=== PATIENT | male | born 1960 | race American Indian/Alaskan Native ===

== ENCOUNTER 2017-04-12 03:23 | Emergency (ER) | payer MEDICARE ==
[2017-04-12 03:33] VITALS: BP 135/87
--- NOTE | 2017-04-12 05:00 | XRay Report ---
FINAL REPORT EXAM: XR ANKLE 2V LT HISTORY: pain TECHNIQUE: AP and lateral views of the left ankle were submitted. FINDINGS: There is soft tissue fullness along the lateral aspect of the ankle. The ankle mortise appears intact. There is no acute fracture. There are small spurs along the posterior and plantar margin of the calcaneus. IMPRESSION: Soft tissue fullness around the lateral aspect of the ankle. No acute fracture Calcaneal spurs.
[2017-04-12] MEDS ORDERED: NORCO 5/325 ONE (05:16)
[2017-04-12] MEDS ORDERED: NORCO 5/325 PO ONE (05:17)
--- NOTE | 2017-04-12 07:20 | Emergency Department Report ---
ED Lower Extremity HPI - General Chief Complaint: Extremity Injury, Lower Stated Complaint: LEG PAIN Time Seen by Provider: 04/12/17 07:12 Source: patient Mode of arrival: Ambulatory Limitations: Physical Limitation - History of Present Illness Initial Comments: This is a 56-year-old male nontoxic, well nourished in appearance, no acute signs of distress presents to the ED with c/o of left ankle pain and swelling 2 days. Patient stated he was playing with his grandson in the bed and when he is got off the bed he believes he twisted his ankle. Patient denies any direct trauma. Patient denies any fever, chills, nausea, vomiting, chest pain, shortness of breath, numbness, tingling, headache or stiff neck. Patient denies decreased range of motion. Patient denies any drug allergies. Past medical history includes hypertension. MD Complaint: ankle injury -: days(s) (2) Injury: Ankle: Left Type of Injury: inversion Place: home Severity: mild Severity scale (0 -10): 8 Improves With: immobilization Worsens With: movement Associated Symptoms: swelling, able to partially bear weight. denies: snap/pop sensation, numbness, tingling, unable to bear weight, ambulatory - Related Data Home Medications Medication Instructions Recorded Confirmed Last Taken Lovastatin [Altoprev] 20 mg PO QPM 12/15/12 12/15/12 12/14/12 23:00 amLODIPine [Norvasc] 5 mg PO DAILY 12/15/12 12/15/12 12/15/12 09:00 Previous Rx's Medication Instructions Recorded Last Taken Type Hydrocodone Bit/Acetaminophen 1 - 2 each PO Q4H PRN #20 tablet 12/16/12 Unknown Rx [Lortab 5-500 Tablet] Indomethacin 50 mg PO Q8H #60 capsule 12/16/12 Unknown Rx predniSONE [Deltasone] 50 mg PO QDAY #7 tab 12/16/12 Unknown Rx Gentamicin 0.3% Ophth Soln 1 drops OP Q4H #1 bottle 01/19/14 Unknown Rx Acetaminophen [Acetaminophen TAB] 1,000 mg PO Q6HR #20 tablet 09/22/14 Unknown Rx Acetaminophen/Codeine [Tylenol #3] 1 tab PO Q6H PRN #21 tab 02/01/15 Unknown Rx Clindamycin [Clindamycin CAP] 600 mg PO BID #28 capsule 02/01/15 Unknown Rx methOCARBAMOL [Robaxin TAB] 500 mg PO Q6H PRN #12 tablet 05/31/15 Unknown Rx traMADol [Ultram 50 MG tab] 50 mg PO Q6HR PRN #12 tablet 11/10/15 Unknown Rx Ibuprofen [Motrin] 600 mg PO Q8H PRN #30 tablet 04/12/17 Unknown Rx predniSONE [Deltasone] 40 mg PO QDAY #5 tab 04/12/17 Unknown Rx Allergies Allergy/AdvReac Type Severity Reaction Status Date / Time No Known Allergies Allergy Verified 02/01/15 15:08 ED Review of Systems ROS: Stated complaint: LEG PAIN Other details as noted in HPI Constitutional: denies: chills, fever Eyes: denies: eye pain, eye discharge, vision change ENT: denies: ear pain, throat pain Respiratory: denies: cough, shortness of breath, wheezing Cardiovascular: denies: chest pain, palpitations Endocrine: no symptoms reported Gastrointestinal: denies: abdominal pain, nausea, diarrhea Genitourinary: denies: urgency, dysuria Musculoskeletal: arthralgia. denies: back pain, joint swelling Skin: denies: rash, lesions Neurological: denies: headache, weakness, paresthesias Psychiatric: denies: anxiety, depression Hematological/Lymphatic: denies: easy bleeding, easy bruising ED Past Medical Hx - Past Medical History Previous Medical History?: Yes Hx Hypertension: Yes (Pt states no but on HTN meds) Hx Heart Attack/AMI: No Hx Congestive Heart Failure: No Hx Diabetes: No Hx Arthritis: Yes Hx COPD: No Additional medical history: gout - Surgical History Past Surgical History?: Yes Additional Surgical History: gastric bypass 01 - Social History Smoking Status: Never Smoker Substance Use Type: None - Medications Home Medications: Home Medications Medication Instructions Recorded Confirmed Last Taken Type Lovastatin [Altoprev] 20 mg PO QPM 12/15/12 12/15/12 12/14/12 23:00 History amLODIPine [Norvasc] 5 mg PO DAILY 12/15/12 12/15/12 12/15/12 09:00 History Hydrocodone Bit/Acetaminophen 1 - 2 each PO Q4H PRN #20 tablet 12/16/12 Unknown Rx [Lortab 5-500 Tablet] Indomethacin 50 mg PO Q8H #60 capsule 12/16/12 Unknown Rx predniSONE [Deltasone] 50 mg PO QDAY #7 tab 12/16/12 Unknown Rx Gentamicin 0.3% Ophth Soln 1 drops OP Q4H #1 bottle 01/19/14 Unknown Rx Acetaminophen [Acetaminophen TAB] 1,000 mg PO Q6HR #20 tablet 09/22/14 Unknown Rx Acetaminophen/Codeine [Tylenol #3] 1 tab PO Q6H PRN #21 tab 02/01/15 Unknown Rx Clindamycin [Clindamycin CAP] 600 mg PO BID #28 capsule 02/01/15 Unknown Rx methOCARBAMOL [Robaxin TAB] 500 mg PO Q6H PRN #12 tablet 05/31/15 Unknown Rx traMADol [Ultram 50 MG tab] 50 mg PO Q6HR PRN #12 tablet 11/10/15 Unknown Rx Ibuprofen [Motrin] 600 mg PO Q8H PRN #30 tablet 04/12/17 Unknown Rx predniSONE [Deltasone] 40 mg PO QDAY #5 tab 04/12/17 Unknown Rx ED Physical Exam - General Limitations: Physical Limitation General appearance: alert, in no apparent distress - Head Head exam: Present: atraumatic, normocephalic - Eye Eye exam: Present: normal appearance, PERRL, EOMI Pupils: Present: normal accommodation - ENT ENT exam: Present: mucous membranes moist - Neck Neck exam: Present: normal inspection - Respiratory Respiratory exam: Present: normal lung sounds bilaterally. Absent: respiratory distress, wheezes, rales, rhonchi, stridor, chest wall tenderness, accessory muscle use, decreased breath sounds, prolonged expiratory - Cardiovascular Cardiovascular Exam: Present: regular rate, normal rhythm, normal heart sounds. Absent: irregular rhythm, systolic murmur, diastolic murmur, rubs, gallop - GI/Abdominal GI/Abdominal exam: Present: soft, normal bowel sounds. Absent: distended, tenderness, guarding, rebound, rigid, diminished bowel sounds - Rectal Rectal exam: Present: deferred - Extremities Exam Extremities exam: Present: normal inspection, full ROM, tenderness, normal capillary refill. Absent: pedal edema, joint swelling, calf tenderness - Expanded Lower Extremity Exam Left Hip exam: Present: normal inspection, full ROM Upper Leg exam: Present: normal inspection, full ROM Knee exam: Present: normal inspection, full ROM Lower Leg exam: Present: normal inspection, full ROM. Absent: Lorenzo's sign Ankle exam: Present: normal inspection, full ROM, tenderness, swelling. Absent : abrasion, laceration, ecchymosis, deformity, crepidus, dislocation, erythema, anterior draw sign Foot/Toe exam: Present: normal inspection, full ROM. Absent: tenderness, swelling, abrasion, laceration, ecchymosis, deformity, crepidus, dislocation, erythema, amputation, puncture wound, foreign body, calcaneal tenderness, tenderness at base of 5th metatarsal, nail avulsion, subungual hematoma Neuro vascular tendon exam: Present: no vascular compromise. Absent: pulse deficit, abnormal cap refill, motor deficit, sensory deficit, tendon deficit, extremity cold to touch, pallor, abnormal 2-point discrimination, decreased fine /light touch, foot drop, peroneal nerve deficit, significant pain with passive ROM of distal joint Gait: Positive: observed and limited by pain - Back Exam Back exam: Present: normal inspection, full ROM. Absent: tenderness, CVA tenderness (R), CVA tenderness (L), muscle spasm, paraspinal tenderness, vertebral tenderness, rash noted - Neurological Exam Neurological exam: Present: alert, oriented X3, CN II-XII intact, normal gait, reflexes normal - Psychiatric Psychiatric exam: Present: normal affect, normal mood - Skin Skin exam: Present: warm, dry, intact, normal color. Absent: rash ED Course Vital Signs 04/12/17 04/12/17 03:28 04:14 Temperature 99.4 F 99.4 F Pulse Rate 122 H 122 H Respiratory 20 20 Rate Blood Pressure 135/87 135/87 O2 Sat by Pulse 98 97 Oximetry - Reevaluation(s) Reevaluation #1: 04/12/17 07:24 Patient is speaking in full sentences with no signs of distress noted. ED Lower Extremity MDM - Medical Decision Making This is a 56-year-old male that presents with left ankle sprain. Patient is stable and was examined by me. X-ray has been obtained and dictated by radiologist as no acute fractures or dislocation with mild swelling. There is no joint redness or warmth to touch. No signs of cellulitis. Patient received [place] prior to my interview and patient was instructed not to operate any machinery after discharge due to drowsiness. Patient received ice to the extremity. Patient was instructed to rice therapy. Patient received ankle stirrup and walker. Patient received Solu-Medrol in the ED and is discharged with prednisone and Motrin. Patient was instructed to Follow-up with a primary care doctor in 3-5 days or if symptoms worsen and continue return to emergency room as soon as possible. At time of discharge, the patient does not seem toxic or ill in appearance. No acute signs of distress noted. Patient agrees to discharge treatment plan of care. No further questions noted by the patient. Critical care attestation.: If time is entered above; I have spent that time in minutes in the direct care of this critically ill patient, excluding procedure time. ED Disposition Clinical Impression: Left ankle sprain Qualifiers: Encounter type: initial encounter Involved ligament of ankle: unspecified ligament Qualified Code(s): S93.402A - Sprain of unspecified ligament of left ankle, initial encounter Disposition: TO HOME OR SELFCARE Is pt being admited?: No Does the pt Need Aspirin: No Condition: Stable Instructions: Ankle Sprain (ED), Ankle Stirrup Splint (ED), RICE Therapy (ED), Ibuprofen (By mouth), Prednisone (By mouth) Additional Instructions: Follow-up with a orthopedic doctor in 3-5 days or if symptoms worsen and continue return to emergency room as soon as possible. Rest, elevate, ice extremity. Prescriptions: Ibuprofen [Motrin] 600 mg PO Q8H PRN #30 tablet PRN Reason: Pain predniSONE [Deltasone] 40 mg PO QDAY #5 tab Referrals: ZION SHULTZ MD [Primary Care Provider] - 3-5 Days CIERA CALLEJAS MD [Staff Physician] - 3-5 Days [facility] [Outside] - 3-5 Days
== END 2017-04-12 08:05 | disposition home or self-care (01) ==
LOC: ED 03:23
DX: S93.402A Sprain of unspecified ligament of left ankle, initial encounter (principal); I10 Essential (primary) hypertension; M10.9 Gout, unspecified; Z98.84 Bariatric surgery status; W51.XXXA Accidental striking against or bumped into by another person, initial encounter; Y93.89 Activity, other specified; Y92.092 Bedroom in other non-institutional residence as the place of occurrence of the external cause; Y99.8 Other external cause status
CPT/HCPCS: 29515; 73600; 96372; 99283; J2930

== ENCOUNTER 2017-08-03 09:50 | Day surgery (SDC) | payer MEDICARE ==
[~2017-08-03 09:50] MED LIST: NACL 0.9% 1000 ML 1,000 ML IV SCH
[2017-08-03] MEDS ORDERED: WATER FOR IRRIG STERILE IR ONE (11:56)
[2017-08-03] MEDS ORDERED: VERSED ONE (12:02)
[2017-08-03] MEDS ORDERED: DIPRIVAN 10 MG/ML IV ONE (12:02)
--- NOTE | 2017-08-03 12:26 | Post Operative Note ---
Pre-op diagnosis: screening colonoscopy Post-op diagnosis: other (procedure aborted due to poor prep (incomplete colonoscopy)) Findings: Poor prep (large amount of solid stool). Procedure aborted in descending colon. Procedure: Incomplete colonoscopy due to poor prep Anesthesia: MAC Surgeon: BRY MANZANARES Estimated blood loss: none Pathology: none Condition: stable Disposition: same day
--- NOTE | 2017-08-03 12:28 | Operative Report ---
Operative Report Operative Report: Colonoscopy Procedure Note Date of procedure: 08/03/2017 Endoscopist: Flip Vences Pre-op diagnosis: screening colonoscopy Post-op diagnosis: Incomplete colonoscopy (intentionally aborted due to poor prep) Anesthesia: MAC Complications: No immediate complications Estimated blood loss: minimal Procedure: After consent was obtained, the patient was placed in the left lateral decubitus position. The fujinon colonoscope was inserted into the patient's rectum under direct vision, and advanced descending colon. The quality of prep was poor. The views of the mucosa were poor. The procedure was intentionally aborted. Findings: Incomplete colonoscopy (procedure aborted) due to poor prep. Impression: 1. Poor prep as above Recommendations: -repeat colonoscopy in 6 months with two day prep
[2017-08-03 13:18] VITALS: BP 121/88
--- NOTE | 2017-08-03 13:19 | Anesthesia Consultation ---
Anesthesia Consult and Med Hx - Airway Anesthetic Teeth Evaluation: Good ROM Head & Neck: Adequate Mental/Hyoid Distance: Adequate Mallampati Class: Class IV Intubation Access Assessment: Possibly Difficult - Pulmonary Exam CTA: Yes - Cardiac Exam Cardiac Exam: No Murmur - Pre-Operative Health Status ASA Pre-Surgery Classification: ASA3 Proposed Anesthetic Plan: MAC - Pulmonary COPD: No Hx Sleep Apnea: No - Cardiovascular System Hx Hypertension: Yes Hx Coronary Artery Disease: No Hx Heart Attack/AMI: No - Hematic Hx Anemia: Yes (Childhood dx) - Other Systems Hx Obesity: Yes
--- NOTE | 2017-08-03 13:19 | Anesthesia Day of Surgery ---
Anesthesia Day of Surgery - Day of Surgery Patient Examined: Yes Patient H&P Reviewed: Yes Patient is NPO: Yes Beta Blockers: No Cardiac Clearance: No Pulmonary Clearance: No
== END 2017-08-03 09:51 | disposition home or self-care (01) ==
LOC: GIO 09:50
PROVIDERS: ATTEND Internal Medicine Gastroenterology
DX: Z12.11 Encounter for screening for malignant neoplasm of colon (principal); I10 Essential (primary) hypertension; E66.01 Morbid (severe) obesity due to excess calories; Z68.43 Body mass index [BMI] 50.0-59.9, adult; Z91.048 Other nonmedicinal substance allergy status; Z91.09 Other allergy status, other than to drugs and biological substances; Z98.890 Other specified postprocedural states; Z79.899 Other long term (current) drug therapy
CPT/HCPCS: G0121; J2250; J2704; J7030

== ENCOUNTER 2018-10-01 17:07 | Emergency (ER) | payer MEDICARE ==
[2018-10-01 17:13] VITALS: BP 147/91
--- NOTE | 2018-10-01 17:19 | Emergency Department Report ---
Blank Doc - Documentation Documentation: This is a 58-year-old male that presents with right flank pain. This initial assessment/diagnostic orders/clinical plan/treatment(s) is/are subject to change based on patient's health status, clinical progression and re- assessment by fellow clinical providers in the ED. Further treatment and workup at subsequent clinical providers discretion. Patient/guardians urged not to elope from the ED as their condition may be serious if not clinically assessed and managed. Initial orders include: 1- Patient sent to [facility] for further evaluation and treatment 2- UA
[2018-10-01] MEDS ORDERED: DECADRON IM ONE (19:38)
[2018-10-01] MEDS ORDERED: TORADOL IM ONE (19:38)
[2018-10-01 20:18] LABS: Bacteria,Urine 1+ /HPF (Negative); Bilirubin,Urine NEG (Negative); Blood,Urine SM (Negative); Color,Urine Yellow (Yellow); Mucus,Urine FEW /HPF
[2018-10-01] MEDS ORDERED: LEVAQUIN PO ONE (20:48)
--- NOTE | 2018-10-01 21:38 | Emergency Department Report ---
ED General Adult HPI - General Chief complaint: Pain General Stated complaint: KIDNEY PAIN Time Seen by Provider: 10/01/18 17:17 Source: patient Mode of arrival: Ambulatory Limitations: No Limitations - History of Present Illness Initial comments: Patient is a 58-year-old -[place] male with a history of hypertension who presents to ED with complaint of acute onset persistent nontraumatic low back pain for the last 2 days. Patient also complains of urinary frequency and urgency and suspects that he may be having a urinary tract infection. Patient states that the pain radiates to the right flank intermittently. The patient denies fever, chills, dysuria, hematuria, penile discharge, testicular pain, traumatic pain, heavy lifting, fall, numbness and tingling or weakness of lower extremities bilaterally, urinary or bowel incontinence, saddle paresthesia, nausea or vomiting and diarrhea. Patient states that the pain is worse with any ambulation or palpation of his lower back. MD Complaint: low back pain; muscle spasm of back -: Sudden, days(s) (4) Location: back Radiation: flank (right) Severity scale (0 -10): 7 Quality: aching, sharp Consistency: constant Improves with: none Worsens with: movement Associated Symptoms: denies: confusion, chest pain, cough, diaphoresis, fever/chills, headaches, loss of appetite, malaise, nausea/vomiting, rash, shortness of breath, syncope, weakness, other - Related Data Home Medications Medication Instructions Recorded Confirmed Last Taken Lovastatin [Altoprev] 20 mg PO QPM 12/15/12 12/15/12 12/14/12 23:00 amLODIPine [Norvasc] 5 mg PO DAILY 12/15/12 12/15/12 12/15/12 09:00 Previous Rx's Medication Instructions Recorded Last Taken Type Hydrocodone Bit/Acetaminophen 1 - 2 each PO Q4H PRN #20 tablet 12/16/12 Unknown Rx [Lortab 5-500 Tablet] Indomethacin 50 mg PO Q8H #60 capsule 12/16/12 Unknown Rx predniSONE [Deltasone] 50 mg PO QDAY #7 tab 12/16/12 Unknown Rx Gentamicin 0.3% Ophth Soln 1 drops OP Q4H #1 bottle 01/19/14 Unknown Rx Acetaminophen [Acetaminophen TAB] 1,000 mg PO Q6HR #20 tablet 09/22/14 Unknown Rx Acetaminophen/Codeine [Tylenol #3] 1 tab PO Q6H PRN #21 tab 02/01/15 Unknown Rx Clindamycin [Clindamycin CAP] 600 mg PO BID #28 capsule 02/01/15 Unknown Rx traMADol [Ultram 50 MG tab] 50 mg PO Q6HR PRN #12 tablet 11/10/15 Unknown Rx Ibuprofen [Motrin] 600 mg PO Q8H PRN #30 tablet 04/12/17 Unknown Rx predniSONE [Deltasone] 40 mg PO QDAY #5 tab 04/12/17 Unknown Rx traMADol [Ultram] 50 mg PO Q6HR PRN #12 tablet 04/12/17 Unknown Rx Naproxen [Naprosyn] 500 mg PO Q12H PRN #20 tablet 10/01/18 Unknown Rx Sulfamethoxazole/Trimethoprim 1 each PO Q12H #20 tablet 10/01/18 Unknown Rx [Bactrim DS TAB] methOCARBAMOL [Robaxin TAB] 500 mg PO Q6H PRN #20 tablet 10/01/18 Unknown Rx predniSONE [Deltasone] 60 mg PO DAILY #15 tablet 10/01/18 Unknown Rx Allergies Allergy/AdvReac Type Severity Reaction Status Date / Time codeine AdvReac Itching Verified 10/01/18 17:14 ED Review of Systems ROS: Stated complaint: KIDNEY PAIN Other details as noted in HPI Constitutional: denies: chills, fever Eyes: denies: eye pain, eye discharge, vision change ENT: denies: ear pain, throat pain Respiratory: denies: cough, shortness of breath, wheezing Cardiovascular: denies: chest pain, palpitations Endocrine: no symptoms reported Gastrointestinal: denies: abdominal pain, nausea, diarrhea Genitourinary: urgency, frequency. denies: dysuria, hematuria, discharge, testicular pain, testicular mass Musculoskeletal: back pain, arthralgia, myalgia. denies: joint swelling Skin: denies: rash, lesions Neurological: denies: headache, weakness, paresthesias Psychiatric: denies: anxiety, depression Hematological/Lymphatic: denies: easy bleeding, easy bruising ED Past Medical Hx - Past Medical History Hx Hypertension: Yes Hx Heart Attack/AMI: No Hx Congestive Heart Failure: No Hx Diabetes: No Hx Arthritis: Yes Hx COPD: No Additional medical history: gout - Surgical History Additional Surgical History: gastric bypass 01 - Social History Smoking Status: Former Smoker Substance Use Type: None - Medications Home Medications: Home Medications Medication Instructions Recorded Confirmed Last Taken Type Lovastatin [Altoprev] 20 mg PO QPM 12/15/12 12/15/12 12/14/12 23:00 History amLODIPine [Norvasc] 5 mg PO DAILY 12/15/12 12/15/12 12/15/12 09:00 History Hydrocodone Bit/Acetaminophen 1 - 2 each PO Q4H PRN #20 tablet 12/16/12 Unknown Rx [Lortab 5-500 Tablet] Indomethacin 50 mg PO Q8H #60 capsule 12/16/12 Unknown Rx predniSONE [Deltasone] 50 mg PO QDAY #7 tab 12/16/12 Unknown Rx Gentamicin 0.3% Ophth Soln 1 drops OP Q4H #1 bottle 01/19/14 Unknown Rx Acetaminophen [Acetaminophen TAB] 1,000 mg PO Q6HR #20 tablet 09/22/14 Unknown Rx Acetaminophen/Codeine [Tylenol #3] 1 tab PO Q6H PRN #21 tab 02/01/15 Unknown Rx Clindamycin [Clindamycin CAP] 600 mg PO BID #28 capsule 02/01/15 Unknown Rx traMADol [Ultram 50 MG tab] 50 mg PO Q6HR PRN #12 tablet 11/10/15 Unknown Rx Ibuprofen [Motrin] 600 mg PO Q8H PRN #30 tablet 04/12/17 Unknown Rx predniSONE [Deltasone] 40 mg PO QDAY #5 tab 04/12/17 Unknown Rx traMADol [Ultram] 50 mg PO Q6HR PRN #12 tablet 04/12/17 Unknown Rx Naproxen [Naprosyn] 500 mg PO Q12H PRN #20 tablet 10/01/18 Unknown Rx Sulfamethoxazole/Trimethoprim 1 each PO Q12H #20 tablet 10/01/18 Unknown Rx [Bactrim DS TAB] methOCARBAMOL [Robaxin TAB] 500 mg PO Q6H PRN #20 tablet 10/01/18 Unknown Rx predniSONE [Deltasone] 60 mg PO DAILY #15 tablet 10/01/18 Unknown Rx ED Physical Exam - General Limitations: No Limitations General appearance: alert, in no apparent distress - Head Head exam: Present: atraumatic, normocephalic, normal inspection - Eye Eye exam: Present: normal appearance, PERRL, EOMI Pupils: Present: normal accommodation - ENT ENT exam: Present: normal exam, normal orophraynx, mucous membranes moist, TM's normal bilaterally, normal external ear exam - Neck Neck exam: Present: normal inspection, full ROM. Absent: tenderness, meningismus, lymphadenopathy, thyromegaly - Respiratory Respiratory exam: Present: normal lung sounds bilaterally. Absent: respiratory distress, wheezes, rales, rhonchi, chest wall tenderness, accessory muscle use, decreased breath sounds - Cardiovascular Cardiovascular Exam: Present: regular rate, normal rhythm, normal heart sounds. Absent: systolic murmur, diastolic murmur, rubs, gallop - GI/Abdominal GI/Abdominal exam: Present: soft, normal bowel sounds. Absent: tenderness, guarding, rebound, hyperactive bowel sounds, hypoactive bowel sounds - Rectal Rectal exam: Present: deferred - Extremities Exam Extremities exam: Present: normal inspection, full ROM, normal capillary refill - Back Exam Back exam: Present: normal inspection, full ROM (palpable lumbosacral paraspinal and musculoskeletal tenderness), tenderness, muscle spasm, paraspinal tenderness - Neurological Exam Neurological exam: Present: alert, oriented X3, CN II-XII intact, normal gait, reflexes normal - Psychiatric Psychiatric exam: Present: normal affect, normal mood - Skin Skin exam: Present: warm, dry, intact, normal color. Absent: rash ED Course Vital Signs 10/01/18 17:11 Temperature 98.8 F Pulse Rate 109 H Respiratory 20 Rate Blood Pressure 147/91 O2 Sat by Pulse 96 Oximetry - Reevaluation(s) Reevaluation #1: 10/01/18 21:45 This is a 58-year-old male who presented to the ED with low back pain and urinary frequency. In the ED, patient is alert and oriented 3 and is not in distress. Patient was treated for pain in the ED and urinalysis shows acute urinary tract infection. Patient was also treated in the ED initially with Levaquin 500 mg by mouth tablet 1. Patient was discharged home on antibiotics and pain medications and advised to follow-up with his primary care physician 7- 10 days for reevaluation. Patient was advised to return to the ED immediately if symptoms get worse. ED Medical Decision Making - Medical Decision Making This is a 58-year-old male who presented to the ED with low back pain and urinary frequency. In the ED, patient is alert and oriented 3 and is not in distress. Patient was treated for pain in the ED and urinalysis shows acute urinary tract infection. Patient was also treated in the ED initially with Levaquin 500 mg by mouth tablet 1. Patient was discharged home on antibiotics and pain medications and advised to follow-up with his primary care physician 7- 10 days for reevaluation. Patient was advised to return to the ED immediately if symptoms get worse. - Differential Diagnosis acute UTI; Chronic low back pain; Muscle spasm of back Critical care attestation.: If time is entered above; I have spent that time in minutes in the direct care of this critically ill patient, excluding procedure time. ED Disposition Clinical Impression: Acute urinary tract infection, Spasm of muscle of lower back Chronic low back pain without sciatica Qualifiers: Back pain laterality: right Qualified Code(s): M54.5 - Low back pain; G89.29 - Other chronic pain Disposition: TO HOME OR SELFCARE Is pt being admited?: No Does the pt Need Aspirin: No Condition: Stable Instructions: Urinary Tract Infection in Men (ED), Muscle Spasm (ED), Chronic Back Pain (ED) Additional Instructions: Take medications with food, drink plenty of fluids and follow up with your primary care physician in 7-10 days for reevaluation. Return to the ED immediately if symptoms get worse. Prescriptions: Sulfamethoxazole/Trimethoprim [Bactrim DS TAB] 1 each PO Q12H #20 tablet predniSONE [Deltasone] 60 mg PO DAILY #15 tablet Naproxen [Naprosyn] 500 mg PO Q12H PRN #20 tablet PRN Reason: Pain , Severe (7-10) methOCARBAMOL [Robaxin TAB] 500 mg PO Q6H PRN #20 tablet PRN Reason: Spasms Referrals: CHRISTINA HARRISON MD [Primary Care Provider] - 3-5 Days Time of Disposition: 21:40 Print Language: MONGOLIAN
[2018-10-01] MEDS ORDERED: TORADOL ONE (22:07)
[2018-10-01] MEDS ORDERED: DECADRON ONE (22:07)
== END 2018-10-01 22:13 | disposition home or self-care (01) ==
LOC: ED 17:07
DX: N39.0 Urinary tract infection, site not specified (principal); G89.29 Other chronic pain; M54.5 Low back pain; I10 Essential (primary) hypertension; M19.90 Unspecified osteoarthritis, unspecified site; Z87.891 Personal history of nicotine dependence; Z79.899 Other long term (current) drug therapy; Z88.6 Allergy status to analgesic agent
CPT/HCPCS: 81001; 96372; 99283; J1100; J1885

== ENCOUNTER 2019-01-22 15:19 | Emergency (ER) | payer MEDICARE ==
--- NOTE | 2019-01-22 16:08 | Emergency Department Report ---
Blank Doc - Documentation Documentation: 58-year-old male that presents with right great toe swelling with hx of gout. This initial assessment/diagnostic orders/clinical plan/treatment(s) is/are subject to change based on patient's health status, clinical progression and re- assessment by fellow clinical providers in the ED. Further treatment and workup at subsequent clinical providers discretion. Patient/guardians urged not to elope from the ED as their condition may be serious if not clinically assessed and managed. Initial orders include: 1- Patient sent to [facility] for further evaluation and treatment
[2019-01-22 19:28] VITALS: BP 160/102
[2019-01-22] MEDS ORDERED: IBUPROFEN 800 MG TAB PO ONE ×2 (20:55→20:59)
[2019-01-22] MEDS ORDERED: predniSONE 20 MG TAB PO ONE ×2 (20:55→20:59)
--- NOTE | 2019-01-22 21:55 | Emergency Department Report ---
ED Lower Extremity HPI - General Chief Complaint: Extremity Problem,Nontraumatic Stated Complaint: RT FOOT GOUT PAIN/EXTREME Time Seen by Provider: 01/22/19 16:07 Source: patient Mode of arrival: Wheelchair Limitations: No Limitations - History of Present Illness Initial Comments: 58-year-old male that presents with right great toe swelling with hx of gout. pain si 4/10 aching. this is an acute flare or chronic condition. pt has been taking ibuprofen but out ot mediaction a this time. pain is exacerbated by walking and prolonged standing, pain i MD Complaint: other (gout left righet co) Onset/Timin -: days(s), unknown (acute on chronic ) Injury: Toes: Right Type of Injury: unknown Place: home Severity: moderate Severity scale (0 -10): 8 Improves With: nothing Worsens With: weight bearing, movement, palpation Associated Symptoms: swelling, ambulatory Treatments Prior to Arrival: cold therapy - Related Data Home Medications Medication Instructions Recorded Confirmed Last Taken Lovastatin [Altoprev] 20 mg PO QPM 12/15/12 12/15/12 12/14/12 23:00 amLODIPine [Norvasc] 5 mg PO DAILY 12/15/12 12/15/12 12/15/12 09:00 Previous Rx's Medication Instructions Recorded Last Taken Type Hydrocodone Bit/Acetaminophen 1 - 2 each PO Q4H PRN #20 tablet 12/16/12 Unknown Rx [Lortab 5-500 Tablet] Indomethacin 50 mg PO Q8H #60 capsule 12/16/12 Unknown Rx predniSONE [Deltasone] 50 mg PO QDAY #7 tab 12/16/12 Unknown Rx Gentamicin 0.3% Ophth Soln 1 drops OP Q4H #1 bottle 01/19/14 Unknown Rx Acetaminophen [Acetaminophen TAB] 1,000 mg PO Q6HR #20 tablet 09/22/14 Unknown Rx Acetaminophen/Codeine [Tylenol #3] 1 tab PO Q6H PRN #21 tab 02/01/15 Unknown Rx Clindamycin [Clindamycin CAP] 600 mg PO BID #28 capsule 02/01/15 Unknown Rx traMADoL [Ultram 50 MG tab] 50 mg PO Q6HR PRN #12 tablet 11/10/15 Unknown Rx Ibuprofen [Motrin] 600 mg PO Q8H PRN #30 tablet 02/20/18 Unknown Rx predniSONE [Deltasone] 40 mg PO QDAY #5 tab 04/12/17 Unknown Rx traMADoL [Ultram] 50 mg PO Q6HR PRN #12 tablet 04/12/17 Unknown Rx Naproxen [Naprosyn] 500 mg PO Q12H PRN #20 tablet 10/01/18 Unknown Rx Sulfamethoxazole/Trimethoprim 1 each PO Q12H #20 tablet 10/01/18 Unknown Rx [Bactrim DS TAB] methOCARBAMOL [Robaxin TAB] 500 mg PO Q6H PRN #20 tablet 10/01/18 Unknown Rx predniSONE [Deltasone] 60 mg PO DAILY #15 tablet 10/01/18 Unknown Rx Indomethacin [Indocin] 50 mg RC TID PRN #30 supp.rect 01/22/19 Unknown Rx Allergies Allergy/AdvReac Type Severity Reaction Status Date / Time codeine AdvReac Itching Verified 10/01/18 17:14 ED Review of Systems ROS: Stated complaint: RT FOOT GOUT PAIN/EXTREME Other details as noted in HPI Constitutional: denies: chills, fever Eyes: denies: eye pain, eye discharge, vision change ENT: denies: ear pain, throat pain Respiratory: denies: cough, shortness of breath, wheezing Cardiovascular: denies: chest pain, palpitations Endocrine: no symptoms reported Gastrointestinal: denies: abdominal pain, nausea, diarrhea Genitourinary: denies: urgency, dysuria Musculoskeletal: arthralgia. denies: back pain, joint swelling Skin: denies: rash, lesions Neurological: denies: headache, weakness, paresthesias Psychiatric: denies: anxiety, depression Hematological/Lymphatic: as per HPI ED Past Medical Hx - Past Medical History Previous Medical History?: Yes Hx Hypertension: Yes Hx Heart Attack/AMI: No Hx Congestive Heart Failure: No Hx Diabetes: No Hx Arthritis: Yes Hx COPD: No Additional medical history: gout - Surgical History Past Surgical History?: Yes Additional Surgical History: gastric bypass 01 - Social History Smoking Status: Current Every Day Smoker Substance Use Type: Alcohol - Medications Home Medications: Home Medications Medication Instructions Recorded Confirmed Last Taken Type Lovastatin [Altoprev] 20 mg PO QPM 12/15/12 12/15/12 12/14/12 23:00 History amLODIPine [Norvasc] 5 mg PO DAILY 12/15/12 12/15/12 12/15/12 09:00 History Hydrocodone Bit/Acetaminophen 1 - 2 each PO Q4H PRN #20 tablet 12/16/12 Unknown Rx [Lortab 5-500 Tablet] Indomethacin 50 mg PO Q8H #60 capsule 12/16/12 Unknown Rx predniSONE [Deltasone] 50 mg PO QDAY #7 tab 12/16/12 Unknown Rx Gentamicin 0.3% Ophth Soln 1 drops OP Q4H #1 bottle 01/19/14 Unknown Rx Acetaminophen [Acetaminophen TAB] 1,000 mg PO Q6HR #20 tablet 09/22/14 Unknown Rx Acetaminophen/Codeine [Tylenol #3] 1 tab PO Q6H PRN #21 tab 02/01/15 Unknown Rx Clindamycin [Clindamycin CAP] 600 mg PO BID #28 capsule 02/01/15 Unknown Rx traMADoL [Ultram 50 MG tab] 50 mg PO Q6HR PRN #12 tablet 11/10/15 Unknown Rx Ibuprofen [Motrin] 600 mg PO Q8H PRN #30 tablet 04/12/17 Unknown Rx predniSONE [Deltasone] 40 mg PO QDAY #5 tab 04/12/17 Unknown Rx traMADoL [Ultram] 50 mg PO Q6HR PRN #12 tablet 04/12/17 Unknown Rx Naproxen [Naprosyn] 500 mg PO Q12H PRN #20 tablet 10/01/18 Unknown Rx Sulfamethoxazole/Trimethoprim 1 each PO Q12H #20 tablet 10/01/18 Unknown Rx [Bactrim DS TAB] methOCARBAMOL [Robaxin TAB] 500 mg PO Q6H PRN #20 tablet 10/01/18 Unknown Rx predniSONE [Deltasone] 60 mg PO DAILY #15 tablet 10/01/18 Unknown Rx Indomethacin [Indocin] 50 mg RC TID PRN #30 supp.rect 01/22/19 Unknown Rx ED Physical Exam - General Limitations: No Limitations General appearance: alert, in no apparent distress - Head Head exam: Present: atraumatic, normocephalic - Eye Eye exam: Present: normal appearance, PERRL, EOMI Pupils: Present: normal accommodation - ENT ENT exam: Present: normal orophraynx, mucous membranes moist, TM's normal bilaterally, normal external ear exam - Neck Neck exam: Present: normal inspection, full ROM. Absent: tenderness, meningismus, thyromegaly - Respiratory Respiratory exam: Present: normal lung sounds bilaterally, rhonchi. Absent: wheezes, chest wall tenderness - Cardiovascular Cardiovascular Exam: Present: regular rate, normal rhythm, normal heart sounds. Absent: systolic murmur, diastolic murmur, rubs, gallop - GI/Abdominal GI/Abdominal exam: Present: soft, normal bowel sounds, bruit. Absent: distended, tenderness, rigid - Rectal Rectal exam: Present: deferred - Extremities Exam Extremities exam: Present: normal inspection, full ROM, tenderness, normal capillary refill, joint swelling. Absent: calf tenderness - Back Exam Back exam: Present: normal inspection, full ROM. Absent: tenderness, CVA tenderness (R), CVA tenderness (L), rash noted - Neurological Exam Neurological exam: Present: alert, oriented X3, CN II-XII intact, normal gait, reflexes normal. Absent: motor sensory deficit - Psychiatric Psychiatric exam: Present: normal affect, normal mood - Skin Skin exam: Present: warm, dry, intact, normal color. Absent: rash ED Course Vital Signs 01/22/19 01/22/19 16:11 19:24 Temperature 98.0 F Pulse Rate 108 H 89 Respiratory 20 20 Rate Blood Pressure 159/91 Blood Pressure 160/102 [Right] O2 Sat by Pulse 98 98 Oximetry ED Lower Extremity MDM - Medical Decision Making this is a gout exacerbation, pain is improved , plan dc to home with rx for : indodmethadcine, prednisone, follow up with pcp in 2-3 days. return to ed if symptoms worsen. Critical care attestation.: If time is entered above; I have spent that time in minutes in the direct care of this critically ill patient, excluding procedure time. ED Disposition Clinical Impression: Gout Gout attack Qualifiers: Gout site: toe Gout etiology: unspecified cause Laterality: right Qualified Code(s): M10.9 - Gout, unspecified Disposition: DC-01 TO HOME OR SELFCARE Is pt being admited?: No Does the pt Need Aspirin: No Condition: Stable Instructions: Acute Gouty Arthritis (ED) Prescriptions: Indomethacin [Indocin] 50 mg RC TID PRN #30 supp.rect PRN Reason: Pain , Severe (7-10) Forms: Work/School Release Form(ED) Time of Disposition: 22:05
== END 2019-01-22 22:10 | disposition home or self-care (01) ==
LOC: ED 15:19
DX: M10.9 Gout, unspecified (principal); I10 Essential (primary) hypertension; M19.90 Unspecified osteoarthritis, unspecified site; F17.200 Nicotine dependence, unspecified, uncomplicated; Z79.899 Other long term (current) drug therapy; Z88.4 Allergy status to anesthetic agent
CPT/HCPCS: 99282; J7512

== ENCOUNTER 2021-08-26 08:06 | Day surgery (SDC) | payer MEDICARE ==
[~2021-08-26 08:06] MED LIST changes: -NACL 0.9% 1000 ML 1,000 ML IV SCH; +SODIUM CHLORIDE 0.9% 1000 ML 1,000 ML IV SCH
--- NOTE | 2021-08-26 09:22 | Anesthesia Consultation ---
Anesthesia Consult and Med Hx Date of service: 08/26/21 - Airway Anesthetic Teeth Evaluation: Good (some missing teeth) ROM Head & Neck: Adequate Mental/Hyoid Distance: Adequate Mallampati Class: Class III Intubation Access Assessment: Possibly Difficult - Pre-Operative Health Status ASA Pre-Surgery Classification: ASA3 Proposed Anesthetic Plan: MAC - Pulmonary COPD: No Hx Sleep Apnea: No - Cardiovascular System Hx Hypertension: Yes Hx Coronary Artery Disease: No Hx Heart Attack/AMI: No - Hematic Hx Anemia: Yes (Childhood dx) - Other Systems Hx Obesity: Yes (BMI 46.7)
--- NOTE | 2021-08-26 09:23 | Anesthesia Day of Surgery ---
Anesthesia Day of Surgery - Day of Surgery Patient Examined: Yes Patient H&P Reviewed: Yes Patient is NPO: Yes
[2021-08-26] MEDS ORDERED: propofoL 200 MG/20 ML VIAL IV ONE ×3 (10:25→10:50)
--- NOTE | 2021-08-26 11:13 | Operative Report ---
Operative Report Operative Report: DOS: 08/26/21 SURGEON: Erick Brock MD COLONOSCOPY WITH SNARE POLYPECTOMY REPORT PREOPERATIVE AND POSTOPERATIVE DIAGNOSIS: Screening colonoscopy DESCRIPTION OF PROCEDURE: The colonoscope was passed to the cecum as identified by the ileocecal valve and appendiceal orifice. Scope was carefully withdrawn. Retroflexion was performed in the rectum. At the end of procedure, the scope was cleaned using normal technique. Vital signs monitored continuously throughout. SEDATION: Provided by Anesthesiology Services. Quality of the prep was limited COMPLICATIONS: None. ESTIMATED BLOOD LOSS: Minimal FINDINGS: * Moderate amount of liquid stool scattered throughout the colon limiting views somewhat small to medium polyps may have been missed * 5 mm sessile polyp in ascending colon removed by cold snare polypectomy * 8 mm sessile polyp in the transverse colon removed by hot snare polypectomy. The polyp was not retrieved * 4 mm sessile polyp in the sigmoid colon removed by cold snare polypectomy * Small nonbleeding internal hemorrhoids * Mild sigmoid diverticulosis * Remainder of exam unremarkable RECOMMENDATIONS: Repeat colonoscopy in 3 years for surveillance with full 2-day colon cleanse
--- NOTE | 2021-08-26 13:49 | Post Anesthesia Evaluation ---
- Post Anesthesia Evaluation Patient Participated: Yes Airway Patent: Yes Stable Respiratory Function: Yes Nausea/Vomiting: No Temp > 96.8F: Yes Pain Manageable: Yes Adequeate Hydration: Yes Anesthesia Complications: No
[2021-08-26 16:12] VITALS: BP 135/88
== END 2021-08-26 11:30 | disposition home or self-care (01) ==
LOC: GIO 08:06
PROVIDERS: ATTEND Student in an Organized Health Care Education/Training Program
DX: Z12.11 Encounter for screening for malignant neoplasm of colon (principal); K57.30 Diverticulosis of large intestine without perforation or abscess without bleeding; K64.8 Other hemorrhoids; D12.2 Benign neoplasm of ascending colon; D12.5 Benign neoplasm of sigmoid colon; E66.01 Morbid (severe) obesity due to excess calories; I10 Essential (primary) hypertension; M10.9 Gout, unspecified; E78.00 Pure hypercholesterolemia, unspecified; M19.90 Unspecified osteoarthritis, unspecified site; K63.89 Other specified diseases of intestine; Z79.899 Other long term (current) drug therapy; Z98.890 Other specified postprocedural states; Z68.42 Body mass index [BMI] 45.0-49.9, adult
CPT/HCPCS: 45385; 88305; J2704; J7030